=== PATIENT | female | born 1935 | race Caucasian/White ===

== ENCOUNTER 2017-08-12 08:33 | Inpatient (IN) | payer OTHER ==
[2017-07-02 11:41] VITALS: BMI 28.0
--- NOTE | 2017-07-02 12:40 | PAT Medication Instructions ---
Service Date Jul 02, 2017. Current Home Medication List Acetaminophen (Tylenol Arthritis Ext Rel), 2 TAB PO QD PRN for Pain Amlodipine (Norvasc), 2.5 MG PO QAM Apixaban (Eliquis), 5 MG PO BID Ascorbic Acid (Vitamin C), 1 TAB PO QAM Aspirin (Aspirin Ec), 81 MG PO QAM Bupropion (Wellbutrin), 100 MG PO BID Cholecalciferol (Vitamin D3), 1 CAP PO QAM Clonazepam (Klonopin), 0.5 MG PO QD Colestipol Hcl (Colestid), 1 GM PO BID Fish Oil (Lakewood-3), 2 CAP PO QAM Furosemide (Lasix), 40 MG PO QAM Hydrocortisone (Rectal) (Hydrocortisone), 1 APPLN PO DIRECTED Insulin Glargine (Lantus), 25 UNITS SC daily @1000 Irbesartan (Irbesartan), 1 TAB PO QAM Loperamide Hcl (Imodium), 2 MG PO QD PRN for Diarrhea Magnesium Oxide (Mag-Ox), 400 MG PO BID Mirtazapine Soltab (Remeron Soltab), 30 MG PO HS Multiple Vitamins W/ Minerals (Multi For Her), 1 CAP PO QAM Omeprazole (Prilosec), 20 MG PO BID Ondansetron Hcl (Zofran), 4 MG PO for Nausea Pancrelipase (Lipase-Protease- (Creon), 1 CAP PO TIDM Potassium Ext Rel (Klor-Con), 20 MEQ PO BID Simvastatin (Zocor), 1 TAB PO HS Sitagliptin (Januvia), 50 MG PO QAM Medication Instructions For Your Scheduled Surgery -Contact your family doctor for instructions for: Apixaban (Eliquis), 5 MG PO BID Aspirin (Aspirin Ec), 81 MG PO QAM Instructions were given by surgeon, need to confirm if OK with prescriber - Hold the following medications 2 weeks prior to surgery: Fish Oil (Lakewood-3), 2 CAP PO QAM - Hold the following medications 24 hours prior to surgery: Colestipol Hcl (Colestid), 1 GM PO BID Hydrocortisone (Rectal) (Hydrocortisone), 1 APPLN PO DIRECTED - Hold the following medications the morning of surgery: Ascorbic Acid (Vitamin C), 1 TAB PO QAM Cholecalciferol (Vitamin D3), 1 CAP PO QAM Furosemide (Lasix), 40 MG PO QAM Irbesartan (Irbesartan), 1 TAB PO QAM Loperamide Hcl (Imodium), 2 MG PO QD PRN for Diarrhea Magnesium Oxide (Mag-Ox), 400 MG PO BID Multiple Vitamins W/ Minerals (Multi For Her), 1 CAP PO QAM Pancrelipase (Lipase-Protease- (Creon), 1 CAP PO TIDM Potassium Ext Rel (Klor-Con), 20 MEQ PO BID Sitagliptin (Januvia), 50 MG PO QAM - Take the following medications the morning of surgery with a sip of water: Acetaminophen (Tylenol Arthritis Ext Rel), 2 TAB PO QD PRN for Pain (if needed, can be taken up to four hours before surgery) Amlodipine (Norvasc), 2.5 MG PO QAM Bupropion (Wellbutrin), 100 MG PO BID Clonazepam (Klonopin), 0.5 MG PO QD (if needed) Omeprazole (Prilosec), 20 MG PO BID Ondansetron Hcl (Zofran), 4 MG PO for Nausea (if needed) Oxycodone (if needed, can be taken up to four hours before surgery) Percocet (if needed, can be taken up to four hours before surgery) - Take the following medications as scheduled the night before surgery: Acetaminophen (Tylenol Arthritis Ext Rel), 2 TAB PO QD PRN for Pain (if needed) Bupropion (Wellbutrin), 100 MG PO BID Clonazepam (Klonopin), 0.5 MG PO QD Loperamide Hcl (Imodium), 2 MG PO QD PRN for Diarrhea (if needed) Mirtazapine Soltab (Remeron Soltab), 30 MG PO HS Omeprazole (Prilosec), 20 MG PO BID Ondansetron Hcl (Zofran), 4 MG PO for Nausea (if needed) Pancrelipase (Lipase-Protease- (Creon), 1 CAP PO TIDM Potassium Ext Rel (Klor-Con), 20 MEQ PO BID Simvastatin (Zocor), 1 TAB PO HS - For Insulin Dependent Diabetic patients: Test blood sugar A.M. of surgery. - If BLOOD SUGAR IS GREATER THAN 150, take half of your regular dose of: Insulin Glargine (Lantus) -- TAKE 12 UNITS - If BLOOD SUGAR IS LESS THAN 150, do not take any: Insulin Glargine ( Lantus) If you have any questions please call us at [phone] or [phone] or [phone]
[2017-07-02 13:51] LABS: BASO % 0.6 %; BASO ABS # 0.04 K/uL (0-0.2); EOS % 10.8 %; EOS ABS # 0.71 K/uL (0-0.5); HEMATOCRIT 38.1 % (37-47); HEMOGLOBIN 11.8 g/dL (12.0-16.0); IG# 0.02 K/uL (0.00-0.02); LYMPH % 24.9 %; LYMPH ABS # 1.63 K/uL (1.2-3.4); MEAN CELL VOLUME 89.9 fL (80-100); MEAN CORPUSCULAR HEMOGLOBIN 27.8 pg (25-34); MEAN PLATELET VOLUME 10.1 fL (7.4-10.4); MONO % 6.3 %; MONO ABS # 0.41 K/uL (0.11-0.59); NEUT % 57.1 %; NEUT ABS # 3.74 K/uL (1.4-6.5); PLATELET COUNT 331 K/uL (130-400); RED CELL DISTRIBUTION WIDTH CV 16.4 % (11.5-14.5); RED CELL DISTRIBUTION WIDTH SD 54.3 fL (36.4-46.3); WHITE BLOOD COUNT 6.55 K/uL (4.8-10.8)
[2017-07-02 14:01] LABS: PTT PATIENT 28.2 SECONDS (21.0-31.0)
[2017-07-02 15:48] LABS: CREATININE 1.53 mg/dl (0.60-1.20); POTASSIUM 4.8 mmol/L (3.5-5.1)
[2017-08-10 11:13] VITALS: BMI 28.0
[~2017-08-12] VITALS: Ht 157.5 cm; Wt 69.5 kg
[2017-08-12] VITALS (9 sets, daily range): BP systolic 101–181; BP diastolic 55–80; PULSE 50–97; TEMP 36.6–37.8; O2SAT 95–100; Ht 157.5 cm; Wt 69.5 kg
[~2017-08-12 08:33] MED LIST: ACET1TAB84 PO; AMLO2.5T PO; APIX1TAB3 PO; ASCO1CAP3 PO; ASPI81TA28 PO; BUPR-83 PO; CHOL2000 PO; CLON0.5T3 PO; COLE1TAB PO; FRS/40 PO; HYDR-4956 PO; IMD/2 PO; INSDGI SC; IRBE1TAB46 PO; LACTATED RINGER'S 1000ML 1,000 ML IV SCH; MAGN400T6 PO; MIRT30TA2 PO; MULT1CAP6 PO; OMEG10007 PO; ONDA4TAB46 PO; PANC6000 PO; POTA-639 PO; PRLSR20 PO; SIMV20TA2 PO; SITA50TA3 PO
[2017-08-12] MEDS ORDERED: MIDAZOLAM HCL 1 MG/ML 2ML VIAL ONE (09:38)
[2017-08-12] MEDS ORDERED: FENTANYL CITRATE INJ 50 MCG/1 ML 2 ML VIAL ONE ×3 (09:38→13:50)
[2017-08-12] MEDS ORDERED: OXYC-57 PO (09:48)
[2017-08-12] MEDS ORDERED: OXYC40TA34 PO (09:48)
--- NOTE | 2017-08-12 10:45 | History and Physical ---
History & Physical Date Aug 12, 2017. Chief Complaint "I have cancer". 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 She has been worked up and seen by [facility]. She has been deemed a resectable candidate. I saw the patient in the office on 06-30-17 and scheduled her for a lobectomy, but she developed an URI and was cancelled and rescheduled for today. I spoke to her family in detail today and we will proceed. Additional History Hepatic Disease: No Endocrine Disorder: No Kidney Disease: No Hypertension: No Heart Disease: No Bleeding Tendencies: No Infectious Diseases: No Allergies Coded Allergies: Ciprofloxacin (Verified Allergy, Mild, DIARRHEA, 08/12/17) Metformin (Verified Adverse Reaction, Mild, DIARRHEA, 08/12/17) Sulfa Antibiotics (Verified Adverse Reaction, Mild, DIARRHEA, 08/12/17) Home Medications Scheduled Apixaban (Eliquis), 5 MG PO BID Ascorbic Acid (Vitamin C), 1 TAB PO QAM Aspirin (Aspirin Ec), 81 MG PO QAM Bupropion (Wellbutrin), 100 MG PO BID Cholecalciferol (Vitamin D3), 1 CAP PO QAM Clonazepam (Klonopin), 0.5 MG PO QD Colestipol Hcl (Colestid), 1 GM PO BID Fish Oil (Dufur-3), 2 CAP PO QAM Furosemide (Lasix), 40 MG PO QAM Hydrocortisone (Rectal) (Hydrocortisone), 1 APPLN PO DIRECTED Insulin Glargine (Lantus), 25 UNITS SC daily @1000 Irbesartan (Irbesartan), 1 TAB PO QAM Magnesium Oxide (Mag-Ox), 400 MG PO BID Mirtazapine Soltab (Remeron Soltab), 30 MG PO HS Multiple Vitamins W/ Minerals (Multi For Her), 1 CAP PO QAM Omeprazole (Prilosec), 20 MG PO BID Oxycodone Hcl (Oxycontin), 40 MG PO Q12 Pancrelipase (Lipase-Protease- (Creon), 1 CAP PO TIDM Potassium Ext Rel (Klor-Con), 20 MEQ PO BID Simvastatin (Zocor), 1 TAB PO HS Sitagliptin (Januvia), 50 MG PO QAM Scheduled PRN Acetaminophen (Tylenol Arthritis Ext Rel), 2 TAB PO QD PRN for Pain Loperamide Hcl (Imodium), 2 MG PO QD PRN for Diarrhea Ondansetron Hcl (Zofran), 4 MG PO for Nausea Oxycodone/Acetaminophen 5MG/325MG (Percocet 5MG/325MG), 1-2 TABLETS PO Q4H PRN for Pain Physical Examination Skin: warm/dry, no rash Eyes: + pertinent finding (Wears glasses.) ENT: normal ENT inspection, pharynx normal Head: normocephalic, atraumatic Neck: supple, trachea midline, + pertinent finding (kyphosis) Respiratory/Chest: + pertinent finding (Some rhonchi) Cardiovascular: regular rate, rhythm, no edema, no murmur Abdomen / GI: normal bowel sounds, non tender Back: + pertinent finding (Marked kyphoscoliosis.) Extremities: normal inspection, normal range of motion Neurologic/Psych: no motor/sensory deficits, alert, normal reflexes, oriented x 3 Diagnosis Adenocarcinoma right lower lobe of lung. Plan of Treatment Robot assisted thoracoscopic right lower lobectomy.
[2017-08-12] MEDS ORDERED: SODIUM CHLORIDE 0.9% PF 50 ML VIAL ONE ×2 (11:05→11:06)
[2017-08-12] MEDS ORDERED: BUPIVACAINE 0.5 % 5 MG/1 ML MPF 30ML VIAL ONE (11:06)
[2017-08-12] MEDS ORDERED: BUPIVACAINE LIPOSOME 1/3% 266 MG/20 ML VIAL INFIL ONE (11:06)
[2017-08-12] MEDS ORDERED: MEPERIDINE HCL 25 MG/ML CARP IV PRN (11:15)
[2017-08-12] MEDS ORDERED: FENTANYL CITRATE INJ 50 MCG/1 ML 2 ML VIAL IV PRN (11:15)
[2017-08-12] MEDS ORDERED: HYDROmorphone INJ 0.5 MG/0.5 ML SYR IV PRN (11:15)
[2017-08-12] MEDS ORDERED: EpHEDrine SULFATE INJ 50 MG/ML AMP IV PRN (11:15)
[2017-08-12] MEDS ORDERED: ONDANSETRON INJ 2 MG/ML 2 ML VIAL IV PRN ×2 (11:15→14:00)
[2017-08-12] MEDS ORDERED: LABETALOL HCL IV 5 MG/ML 20ML IV PRN (11:15)
[2017-08-12] MEDS ORDERED: ATROPINE SULFATE 0.1 MG/ML 5ML SYR IV PRN (11:15)
[2017-08-12] MEDS ORDERED: LIDOCAINE HCL 2% 2 ML VIAL (20MG/ML) ONE ×2 (13:33→13:47)
[2017-08-12] MEDS ORDERED: ONDANSETRON INJ 2 MG/ML 2 ML VIAL ONE (13:33)
[2017-08-12] MEDS ORDERED: GLYCOPYRROLATE INJ 0.2 MG/ML VIAL ONE (13:33)
[2017-08-12] MEDS ORDERED: DEXAMETHASONE SOD INJ 4 MG/ML VIAL ONE (13:33)
[2017-08-12] MEDS ORDERED: ROCURONIUM BROMIDE 10 MG/ML 5 ML VIAL IV ONE (13:33)
[2017-08-12] MEDS ORDERED: PROPOFOL IV EMULSION 10 MG/ML 20 ML VIAL IV ONE (13:33)
[2017-08-12] MEDS ORDERED: NEOSTIGMINE METHYLSULFATE 5 MG/5 ML SYR ONE (13:33)
[2017-08-12] MEDS ORDERED: TISSEEL FIBRIN SEALANT 10ML TOP ONE ×2 (13:34→13:35)
[2017-08-12] MEDS ORDERED: EpHEDrine SULFATE INJ 50 MG/ML AMP ONE (13:41)
[2017-08-12] MEDS ORDERED: PHENYLEPHRINE 100MCG/ML 5ML SYR ONE (13:41)
[2017-08-12] MEDS ORDERED: PHENYLEPHRINE HCL INJ 10 MG/ML VIAL ONE (13:41)
--- NOTE | 2017-08-12 13:48 | [facility] Post Operative Brief Note ---
Immediate Operative Summary Operative Date Aug 12, 2017. Pre-Operative Diagnosis Adenocarcinoma, Right Lung Post-Operative Diagnosis same as pre-op Procedure(s) Performed Right Video Assisted Thoracoscopy with Right Lower Lobectomy, Mediastinal Lymphadenectomy Surgeon Dr. Kamar Gracia Rail Switchman Surgeon(s) Jens Lama PA-C Estimated Blood Loss 25mL Findings Consistent with Post-Op Diagnosis Specimens Tissue Examination: A. R4 Lymph Node B. R2 Lymph Node x 2 C. R9 Lymph Node D. R12 Lymph Node x 2 Frozen Section: 1. Right Lower Lobe, check for margins Anesthesia Type General
[2017-08-12] MEDS ORDERED: LABETALOL HCL IV 5 MG/ML 20ML IV ONE (13:53)
[2017-08-12] MEDS ORDERED: HYDROCORTISONE HC 2.5% CRM 30GM TUBE EXT PRN (14:00)
[2017-08-12] MEDS ORDERED: OXYCODONE HCL IR 5 MG TAB (IMMEDIATE RELEASE) PO PRN (14:00)
[2017-08-12] MEDS ORDERED: METOCLOPRAMIDE HCL INJ 5 MG/ML 2 ML VIAL ONE (14:13)
--- NOTE | 2017-08-12 14:42 | DIAGNOSTIC IMAGING REPORT ---
CHEST ONE VIEW PORTABLE CLINICAL HISTORY: RLL postoperative evaluation COMPARISON STUDY: No previous studies for comparison. FINDINGS: Postoperative changes right hemithorax with placement of a right sided chest tube. No significant postprocedural pneumothorax. Left lung is grossly clear. Severe degenerative changes of the shoulders bilaterally. IMPRESSION: Postoperative changes right hemithorax with no significant postprocedural pneumothorax. The above report was generated using voice recognition software. It may contain grammatical, syntax or spelling errors. Electronically signed by: Sony Hanson M.D. 08/12/2017 2:41 PM Dictated Date/Time: 08/12/2017 2:40 PM
--- NOTE | 2017-08-12 15:14 | Anesthesiology Progress Note ---
Anesthesia Post Op Note Date & Time Aug 12, 2017 at 15:13 Vital Signs Pain Intensity: 0 Vital Signs Past 12 Hours Date Time Temp Pulse Resp B/P (MAP) Pulse Ox O2 Delivery O2 Flow Rate FiO2 08/12/17 15:05 49 15 100 08/12/17 15:05 49 15 08/12/17 15:01 156/73 08/12/17 15:00 49 19 99 08/12/17 15:00 36.1 59 17 156/73 100 Nasal Cannula 3 08/12/17 15:00 49 19 08/12/17 14:56 165/78 08/12/17 14:55 54 22 08/12/17 14:55 50 22 98 08/12/17 14:51 162/74 08/12/17 14:50 48 14 100 08/12/17 14:50 52 14 08/12/17 14:46 142/77 08/12/17 14:45 50 18 97 08/12/17 14:45 50 18 08/12/17 14:41 163/74 08/12/17 14:40 49 16 100 08/12/17 14:40 49 16 08/12/17 14:36 153/73 08/12/17 14:35 50 15 100 08/12/17 14:35 49 15 08/12/17 14:31 153/79 08/12/17 14:30 57 16 116/94 100 08/12/17 14:30 57 16 08/12/17 14:25 59 19 08/12/17 14:25 62 19 08/12/17 14:21 155/80 08/12/17 14:20 56 16 100 08/12/17 14:20 56 16 08/12/17 14:17 138/68 08/12/17 14:15 58 18 08/12/17 14:15 56 18 100 08/12/17 14:11 135/72 08/12/17 14:10 26 08/12/17 14:10 64 26 08/12/17 14:10 35.8 70 12 135/72 99 Oxymask 10 08/12/17 09:18 95 Room Air 08/12/17 09:12 36.9 92 20 153/80 Notes Mental Status: alert / awake / arousable, participated in evaluation Pt Amnestic to Procedure: Yes Nausea / Vomiting: adequately controlled Pain: adequately controlled Airway Patency, RR, SpO2: stable & adequate BP & HR: stable & adequate Hydration State: stable & adequate Anesthetic Complications: no major complications apparent
[2017-08-12] MEDS ORDERED: DEXTROSE 50% 50 ML SYR IV PRN (15:45)
[2017-08-12] MEDS ORDERED: GLUCOSE 40% GEL 15 GM TUBE PO PRN (15:45)
[2017-08-12] MEDS ORDERED: GLUCOSE 10 TABS/TUBE PO PRN (15:45)
[2017-08-12] MEDS ORDERED: GLUCAGON FOR INJ 1 MG VIAL SQ PRN (15:45)
--- NOTE | 2017-08-12 16:01 | OPERATIVE REPORT ---
DATE OF OPERATION: 08/12/2017 PREOPERATIVE DIAGNOSIS: Adenocarcinoma, right lower lobe. POSTOPERATIVE DIAGNOSIS: Adenocarcinoma, right lower lobe. PROCEDURE: Robot-assisted thoracoscopic right lower lobectomy and mediastinal lymphadenectomy. SURGEON: Kamar Gracia MD FEED MIXER HELPER: LC Dietrich (MrAnca Lama was present for the entire case and was instrumental and he was at the patient's bedside while I was at the console. He closed the skin incisions at the conclusion of the case also). ANESTHESIA: General anesthesia with endotracheal intubation. INDICATION FOR PROCEDURE AND FINDINGS: Katerin Abbott is an 81-year-old who has never smoked cigarettes, is found to have an adenocarcinoma of the right lower lobe. I saw her in the office. We had multiple discussions about this, we elected to proceed with a lower lobectomy. She is 81 and has multiple issues, but in general, she and her family desired that we offer her a surgical resection if she was a candidate. On 08/12/2017, the patient was brought to the operating room and underwent an uncomplicated robot-assisted thoracoscopic right lower lobectomy and mediastinal lymphadenectomy. Her margins were negative. She tolerated this quite well and was extubated in the room with negligible blood loss. PROCEDURE IN DETAIL: The patient was brought to the operating room and laid in supine position. General anesthesia induced and endotracheal intubation was performed. This was done with a double lumen tube. The patient was then turned to left lateral decubitus position, the right chest was prepped and draped in usual sterile fashion. After appropriate antibiotics had been given and timeout had been taken, a 5 mm port was placed in the eighth interspace just above the costal margin and carbon dioxide infused. A 5 mm scope was placed and it could to be seen there were no adhesions. She had fairly complete fissures. Three other robotic ports were placed including a 12 mm camera port, 5 mm grasper, and two 8 mm ports. A 15 mm phlebotomy lab assistant's port was placed anteriorly just above the diaphragm. The robot was then docked. We used Exparel 266 mg mixed with 30 mL of 0.5% bupivacaine and 150 mL of normal saline. These were injected into all incisions and also used to do an intercostal nerve block from the 2nd to the 11th rib. After the robot had been docked, first the lung was retracted anteriorly and the posterior pleura was removed. I dissected out the level 7 area, identified the esophagus as well as the left main stem bronchus, I really did not see a lymph node here. There was a level 10 node. I saw some level 11 and level 12. I dissected out level 4 and 5 as well as level 9. I really did not see a level 8. After taking down the inferior pulmonary ligament, we came upon the vein which was easily cleaned off. Attention was then turned towards the fissure. There were lymph nodes which were stuck to the artery, but we have managed to get these off without difficulty. I completed the fissure anteriorly with a cautery and after we identified the bronchus as well as the artery and identified the middle lobe artery and vein for both of these. Attention was then turned towards the posterior fissure. After freeing up the arteries and dissecting he parenchyma free, I was able to put a stapler in place and complete the fissure posteriorly. After this, we then isolated the pulmonary artery to the lower lobe and fired an Endo-ZACHARY stapler just below the takeoff of the middle lobe branches. In the same fashion, a stapler was fired across the bronchus just below the takeoff of the middle lobe bronchus. Finally, we freed up everything else. We fired a stapler across the inferior pulmonary vein. The specimen was then placed in an Endobag and the right lower lobe was delivered off the field. We then checked and really saw no evidence of an air leak with inflation of the lung. It should be noted that the middle lobe inflated nicely and had firm attachment to the upper lobe. Tisseel was then sprayed along the bronchus as there was a bit of bleeding as well as the artery and the vein. A 24-Occitan chest tube was then placed in the anterior thoracoscopy port after we had undocked the robot and removed all of the ports. This was held in place with heavy silk suture. The larger phlebotomy lab assistant's port had to be enlarged a bit to get the specimen out. The muscle layers were closed with 0 Vicryl in a running continuous fashion and the 12 mm camera port was also reapproximated using 0 Vicryl. 4-0 Monocryl was used in running subcuticular fashion to approximate the wound edges. She really did not have much of an air leak. She had negligible blood loss and was extubated in the room and had good pain control. I attest to the content of the Intraoperative Record and any orders documented therein. Any exceptions are noted below. NICOLASA
[2017-08-12] MEDS: SODIUM CHLORIDE 0.9% 1000ML 1,000 ML IV SCH (16:33)
[2017-08-12] MEDS: ACETAMINOPHEN IV 1,000 MG in EMPTY BAG 0 ML IV SCH (16:37)
[2017-08-12] MEDS: MoRPHine SULFATE 2 MG/ML CARP IV PRN ×3 (16:47→22:12)
[2017-08-12] MEDS: PANCREAZE (LIPASE 10,500U) CAP PO SCH (17:37)
[2017-08-12] MEDS: INSULIN ASPART 100 UNITS/ML 3 ML PEN SC SCH ×2 (18:06→21:25)
[2017-08-12] MEDS: DOCUSATE SODIUM 100 MG CAP PO SCH (21:00)
[2017-08-12] MEDS: SIMVASTATIN 20 MG TAB PO SCH (21:06)
[2017-08-12] MEDS: MAGNESIUM OXIDE 400 MG TAB PO SCH (21:07)
[2017-08-12] MEDS: PANTOprazole SOD 40 MG TAB PO SCH (21:07)
[2017-08-12] MEDS: MIRTAZAPINE SOLTAB 15 MG PO SCH (21:09)
[2017-08-12] MEDS: INSULIN GLARGINE SOLOSTAR 100 UNITS/ML 3 ML PEN SC SCH (21:25)
[2017-08-12] MEDS: COLESTIPOL HCL 1 GM TAB PO SCH (22:05)
[2017-08-12] MEDS: METOCLOPRAMIDE HCL INJ 5 MG/ML 2 ML VIAL IV. SCH (22:07)
[2017-08-13] VITALS (11 sets, daily range): BP systolic 108–192; BP diastolic 64–96; PULSE 69–103; TEMP 36.5–37; O2SAT 91–99
[2017-08-13] MEDS: ACETAMINOPHEN IV 1,000 MG in EMPTY BAG 0 ML IV SCH (00:22)
[2017-08-13] MEDS: SODIUM CHLORIDE 0.9% 1000ML 1,000 ML IV SCH (03:25)
[2017-08-13] MEDS: MoRPHine SULFATE 2 MG/ML CARP IV PRN ×6 (04:42→23:58)
[2017-08-13] MEDS: METOCLOPRAMIDE HCL INJ 5 MG/ML 2 ML VIAL IV. SCH (05:01)
[2017-08-13] MEDS: IRBESARTAN 75 MG TAB PO SCH (07:47)
[2017-08-13] MEDS: PANCREAZE (LIPASE 10,500U) CAP PO SCH ×3 (07:48→18:31)
[2017-08-13] MEDS: DOCUSATE SODIUM 100 MG CAP PO SCH ×2 (07:49→20:56)
[2017-08-13] MEDS: ASPIRIN 81 MG ECTAB PO SCH (07:49)
[2017-08-13] MEDS: MAGNESIUM OXIDE 400 MG TAB PO SCH ×2 (07:49→20:56)
[2017-08-13] MEDS: SITAGLIPTIN 25 MG TAB PO SCH (07:50)
[2017-08-13] MEDS: CEROVITE ADV FORMULA TAB PO SCH (07:50)
[2017-08-13] MEDS: CHOLECALCIFEROL 1000 INTER.UNIT TAB PO SCH (07:50)
[2017-08-13 07:54] LABS: BASO % 0.1 %; BASO ABS # 0.01 K/uL (0-0.2); EOS % 0.4 %; EOS ABS # 0.04 K/uL (0-0.5); HEMATOCRIT 32.2 % (37-47); IG# 0.02 K/uL (0.00-0.02); LYMPH ABS # 1.15 K/uL (1.2-3.4); MEAN CELL VOLUME 90.4 fL (80-100); MEAN CORPUSCULAR HEMOGLOBIN 28.1 pg (25-34); MEAN CORPUSCULAR HGB CONC 31.1 g/dl (32-36); MEAN PLATELET VOLUME 9.4 fL (7.4-10.4); MONO % 8.7 %; MONO ABS # 0.83 K/uL (0.11-0.59); NEUT % 78.6 %; PLATELET COUNT 279 K/uL (130-400); RED CELL DISTRIBUTION WIDTH SD 49.8 fL (36.4-46.3); WHITE BLOOD COUNT 9.55 K/uL (4.8-10.8)
[2017-08-13] MEDS: INSULIN ASPART 100 UNITS/ML 3 ML PEN SC SCH ×4 (08:00→21:03)
[2017-08-13] MEDS: CLONAZEPAM 0.5 MG TAB PO SCH (08:02)
[2017-08-13 08:28] LABS: CALCIUM 8.3 mg/dl (8.5-10.1); CREATININE 1.47 mg/dl (0.60-1.20); POTASSIUM 4.5 mmol/L (3.5-5.1)
--- NOTE | 2017-08-13 08:53 | DIAGNOSTIC IMAGING REPORT ---
CHEST ONE VIEW PORTABLE CLINICAL HISTORY: History of right-sided lobectomy COMPARISON STUDY: 08/12/2017 FINDINGS: Postsurgical changes are present on the right. There is no change the position right-sided chest tube. There is no pneumothorax. There is no focal pulmonary consolidation. Surgical clips are visualized the base the right neck. There are advanced arthritic changes present within the shoulders.[ IMPRESSION: Postsurgical changes on the right. No evidence of pneumothorax. Electronically signed by: Simone Manning M.D. 08/13/2017 7:25 AM Dictated Date/Time: 08/13/2017 7:11 AM
[2017-08-13] MEDS ORDERED: ENOXAPARIN 30 MG/0.3 ML SYR SQ SCH (09:00)
[2017-08-13] MEDS ORDERED: ACETAMINOPHEN 325 MG TAB PO SCH (09:00)
[2017-08-13] MEDS ORDERED: NURSING VERBAL MED ORDER ONE (09:30)
[2017-08-13] MEDS ORDERED: OXYCODONE HCL 40 MG TABCR (OXYCONTIN) PO SCH (10:00)
[2017-08-13] MEDS: PANTOprazole SOD 40 MG TAB PO SCH ×2 (10:17→20:56)
[2017-08-13] MEDS: OXYCODONE HCL 20 MG TABCR (OXYCONTIN) PO SCH ×2 (10:17→20:54)
[2017-08-13] MEDS: COLESTIPOL HCL 1 GM TAB PO SCH ×2 (10:17→20:55)
[2017-08-13] MEDS: FUROSEMIDE 40 MG TAB PO SCH (10:17)
[2017-08-13] MEDS: APIXABAN 2.5 MG TAB PO SCH ×2 (11:12→20:55)
[2017-08-13] MEDS: OXYCODONE/ACETAMINOPHEN 5-325 TAB PO PRN ×2 (12:31→17:25)
--- NOTE | 2017-08-13 13:42 | SURGERY PROGRESS NOTE ---
DATE: 08/13/2017 Katerin Abbott is an 81-year-old female that had a robot-assisted thoracoscopic right lower lobectomy and mediastinal lymphadenectomy for an adenocarcinoma yesterday. She has done quite well. She is complaining of pain; however, the patient is on OxyContin at home for her pain. She is complaining of some chest tube site pain, but really has been breathing well. She is on room air. She ambulated in the hallway with her walker. She has been up in the chair for all her meals. Quite frankly, I am happy with her. We stopped her IV fluid, stopped suction to her chest tube and have her ambulate. I am going to remove her chest tube in the morning and probably let her go home. NICOLASA
[2017-08-13] MEDS: INSULIN GLARGINE SOLOSTAR 100 UNITS/ML 3 ML PEN SC SCH (21:04)
[2017-08-13] MEDS: SIMVASTATIN 20 MG TAB PO SCH (21:21)
[2017-08-13] MEDS: MIRTAZAPINE SOLTAB 15 MG PO SCH (21:21)
[2017-08-14] VITALS (9 sets, daily range): BP systolic 101–160; BP diastolic 54–91; PULSE 65–107; TEMP 36.3–37.5; O2SAT 91–100
[2017-08-14] MEDS: OXYCODONE/ACETAMINOPHEN 5-325 TAB PO PRN ×2 (01:57→18:24)
[2017-08-14] MEDS: MoRPHine SULFATE 2 MG/ML CARP IV PRN ×3 (04:50→15:39)
--- NOTE | 2017-08-14 08:14 | Discharge Instructions ---
Discharge Instructions Date of Service Aug 14, 2017. Admission Reason for Admission: Lung Cancer Discharge Discharge Diagnosis / Problem: Lung Cancer Discharge Goals Goal(s): Learn about illness Activity Recommendations Activity Limitations: as noted below Lifting Limitations: none 1. Do not drive until cleared to do so by Dr. Gracia. . Instructions / Follow-Up Instructions / Follow-Up 1. You may remove dressings in 3 days and shower thereafter. No tub baths. 2. Office appointment with Dr. Gracia in 1 week. Office will call you with date and time of appointment. Go to hospital 1 hour before appointment to have a chest x-ray taken. Current Hospital Diet Patient's current hospital diet: Diabetes Type 2 Diet Discharge Diet Recommended Diet: Diabetes Type 2 Diet Procedures Procedures Performed: Robot Assisted Right Video Assisted Thoracoscopy with Right Lower Lobectomy and Mediastinal Lymphadenectomy Pending Studies Studies pending at discharge: no Medical Emergencies . Who to Call and When: Medical Emergencies: If at any time you feel your situation is an emergency, please call 911 immediately. . Non-Emergent Contact Non-Emergency issues call your: Surgeon Call Non-Emergent contact if: you have a fever, your pain is not controlled, wound has increased drainage . "Provider Documentation" section prepared by Jens Lama. .
[2017-08-14] MEDS: IRBESARTAN 75 MG TAB PO SCH (08:33)
[2017-08-14] MEDS: CHOLECALCIFEROL 1000 INTER.UNIT TAB PO SCH (08:33)
[2017-08-14] MEDS: FUROSEMIDE 40 MG TAB PO SCH (08:34)
[2017-08-14] MEDS: SITAGLIPTIN 25 MG TAB PO SCH (08:34)
[2017-08-14] MEDS: APIXABAN 2.5 MG TAB PO SCH ×2 (08:34→21:39)
[2017-08-14] MEDS: PANCREAZE (LIPASE 10,500U) CAP PO SCH ×3 (08:34→18:21)
[2017-08-14] MEDS: ASPIRIN 81 MG ECTAB PO SCH (08:34)
[2017-08-14] MEDS: CEROVITE ADV FORMULA TAB PO SCH (08:35)
[2017-08-14] MEDS: OXYCODONE HCL 20 MG TABCR (OXYCONTIN) PO SCH ×2 (08:38→21:39)
[2017-08-14] MEDS: CLONAZEPAM 0.5 MG TAB PO SCH (08:38)
[2017-08-14] MEDS: INSULIN ASPART 100 UNITS/ML 3 ML PEN SC SCH ×4 (08:41→21:34)
--- NOTE | 2017-08-14 09:04 | DIAGNOSTIC IMAGING REPORT ---
CHEST ONE VIEW PORTABLE CLINICAL HISTORY: Tube removal. COMPARISON STUDY: Chest radiograph August 13, 2017. FINDINGS: The right sided chest tube has been removed. There is a medial right basilar pneumothorax, small in size. There is a trace right apical pneumothorax. Right hemithorax volume loss is noted. Surgical clips within the right lower neck/upper mediastinum are noted. Severe degenerative changes of both shoulders are noted. There is cardiomegaly without evidence for pulmonary edema. There are mild bibasilar opacities. IMPRESSION: 1. Interval removal of right-sided chest tube. Small right basilar pneumothorax with trace apical component. 2. Bibasilar opacities which favor atelectasis. Electronically signed by: Marck Hutchison M.D. 08/14/2017 9:02 AM Dictated Date/Time: 08/14/2017 8:59 AM
[2017-08-14] MEDS ORDERED: MIRT30TA2 PO (09:36)
[2017-08-14] MEDS ORDERED: CLON0.5T3 PO (09:36)
[2017-08-14] MEDS ORDERED: OXYC40TA34 PO (09:37)
[2017-08-14] MEDS ORDERED: OXYC-57 PO (09:37)
[2017-08-14] MEDS: PANTOprazole SOD 40 MG TAB PO SCH ×2 (09:39→21:39)
[2017-08-14] MEDS: MAGNESIUM OXIDE 400 MG TAB PO SCH ×2 (09:39→21:39)
[2017-08-14] MEDS: DOCUSATE SODIUM 100 MG CAP PO SCH ×2 (09:40→21:43)
--- NOTE | 2017-08-14 09:44 | Discharge Instructions ---
Discharge Instructions Date of Service Aug 14, 2017. Admission Reason for Admission: Lung Cancer Discharge Discharge Diagnosis / Problem: Lung Cancer Discharge Goals Goal(s): Improve disease control, Learn about illness Activity Recommendations Activity Level: Up Ad Kathrine, Assistance Required Therapies: Physical Therapy, Weight Bearing Status (full/as tolerated), Occupational Therapy Lifting Limitations: none Shower/Bathe: may shower/bathe in 3 days 1. Dressings may be removed on 08/17/17. Pt. may shower thereafter. No tub baths. . Additional Information Patient informed of condition: Yes Advance Directives: No DNR: No Level of Care: Acute Rehab Communicable Disease: No Prognosis: Improving Oxygen at (LPM): no Vilchis Catheter: No Instructions / Follow-Up Instructions / Follow-Up 1. Pt. needs to ambulate in hallway each shift. 2. Pt. needs to be OOB for all meals. 3. Please do not apply SCDs while pt. is in bedside chair (only use these while pt. is in bed.) 4. Office appointment with Dr. Gracia follow discharge. His office will contact the patient for an appointment date/time. The patient will need a chest x-ray prior to her appointment with Dr. Gracia, and his office will arrange this study. (Preferably this chest x-ray should be taken at [facility]) Current Hospital Diet Patient's current hospital diet: Diabetes Type 2 Diet Discharge Diet Recommended Diet: Diabetes Type 2 Diet Procedures Procedures Performed: Robot Assisted Right Video Assisted Thoracoscopy with Right Lower Lobectomy and Mediastinal Lymphadenectomy Pending Studies Studies pending at discharge: no Medical Emergencies . Who to Call and When: Medical Emergencies: If at any time you feel your situation is an emergency, please call 911 immediately. . Non-Emergent Contact Non-Emergency issues call your: Surgeon Call Non-Emergent contact if: you have a fever, your pain is not controlled, wound has increased drainage . . "Provider Documentation" section prepared by Jens Lama. . Core Measure Problem Core Measures: None
--- NOTE | 2017-08-14 10:16 | SURGERY PROGRESS NOTE ---
DATE: 08/14/2017 Ms. Abbott was seen today. Her chest tube is out. I think her x-ray looks good. Her x-ray is questionable whether there is small pneumothorax. She is on room air. She is ambulating in the hallway. She is complaining of pain; however, she complained of pain before she came in and is on significant doses of narcotics for her pain. At any rate, the patient lives in a [id number] suite with her daughter, but really her daughter is not there to help her. She is extremely concerned about going home by herself. She has had a major operation, but she is on room air. She was tolerating with assistance and with a walker. She is eating well. Hopefully, we can get her to an extended care facility later today or tomorrow.
[2017-08-14] MEDS: COLESTIPOL HCL 1 GM TAB PO SCH ×2 (12:05→22:44)
--- NOTE | 2017-08-14 16:11 | DISCHARGE SUMMARY ---
DISCHARGE DIAGNOSIS: Adenocarcinoma, right lower lobe. HOSPITAL COURSE: Katerin Abbott is an 81-year-old female with multiple medical problems including severe osteoarthritis who was found to have a mass in her right lower lobe. She was worked up by Dr. Jonel Mccullough from [facility]. Despite her age in fact she used a walker, she had never smoked cigarettes and had good lung function. After much discussion, we elected to proceed with a resection. On 08/12/2017, the patient underwent an uncomplicated robot-assisted thoracoscopic right lower lobectomy with mediastinal lymphadenectomy. Bronchial margins were clean. Ms. Abbott did quite well. I watched her on the floor. She complained of severe pain, but the patient has marked pain from her back and is on high doses of OxyContin and Percocet at home. We weaned her from her oxygen on the first postoperative day. We had her up walking in the hallway with her walker on the day of surgery. She was walked on every shift. She was eating well and on room air. We got her chest tube out on the morning of postoperative day 2. She did very well. She had taken all of her meals in a chair. Given her advanced age and other comorbid conditions, we elected to put her in a rehab facility for a short time until she improved enough to go home. It should be noted that she lives with her daughter in a [id number] suite. Ms. Abbott has multiple issues including anxiety and depression but her depression is very well controlled with medications and she exhibited no signs of that during her stay at [facility]. The patient was discharged to the [facility] on 08/14/2017. All of her incisions were clean and her chest x-ray looked good. We will see her back in the office in about a week to go over her final pathology reports.
[2017-08-14] MEDS: SIMVASTATIN 20 MG TAB PO SCH (21:39)
[2017-08-14] MEDS: INSULIN GLARGINE SOLOSTAR 100 UNITS/ML 3 ML PEN SC SCH (21:49)
[2017-08-14] MEDS: MIRTAZAPINE SOLTAB 15 MG PO SCH (21:50)
[2017-08-15 05:30] VITALS: O2SAT 92
[2017-08-15 07:18] VITALS: BP 117/75; PULSE 79; TEMP 36.5; O2SAT 95
[2017-08-15] MEDS: DOCUSATE SODIUM 100 MG CAP PO SCH (09:00)
[2017-08-15] MEDS: INSULIN ASPART 100 UNITS/ML 3 ML PEN SC SCH ×2 (09:54→12:00)
[2017-08-15] MEDS: CHOLECALCIFEROL 1000 INTER.UNIT TAB PO SCH (09:55)
[2017-08-15] MEDS: CEROVITE ADV FORMULA TAB PO SCH (09:56)
[2017-08-15] MEDS: OXYCODONE HCL 20 MG TABCR (OXYCONTIN) PO SCH (09:56)
[2017-08-15] MEDS: PANTOprazole SOD 40 MG TAB PO SCH (09:56)
[2017-08-15] MEDS: FUROSEMIDE 40 MG TAB PO SCH (09:57)
[2017-08-15] MEDS: MAGNESIUM OXIDE 400 MG TAB PO SCH (09:57)
[2017-08-15] MEDS: ASPIRIN 81 MG ECTAB PO SCH (09:58)
[2017-08-15] MEDS: SITAGLIPTIN 25 MG TAB PO SCH (09:58)
[2017-08-15] MEDS: IRBESARTAN 75 MG TAB PO SCH (09:58)
[2017-08-15] MEDS: APIXABAN 2.5 MG TAB PO SCH (09:58)
[2017-08-15] MEDS: COLESTIPOL HCL 1 GM TAB PO SCH (09:59)
[2017-08-15] MEDS: PANCREAZE (LIPASE 10,500U) CAP PO SCH ×2 (09:59→13:02)
[2017-08-15] MEDS: CLONAZEPAM 0.5 MG TAB PO SCH (10:00)
[2017-08-15 11:25] VITALS: BP 117/75; PULSE 79; TEMP 36.5; O2SAT 95
--- NOTE | 2017-08-17 08:00 | DISCHARGE SUMMARY ---
Ms. Abbott is to be discharged last night to the extended care facility in [place]; however, her family and the patient were reticent to have this done only 2 days after major lung resection. She was in significant pain and so we watched her one more day. Today, she is much better. She slept her entire night. She has been ambulating in the hallway. She really looks much better than she did yesterday. I reviewed her pathology. This is an interesting tumor. 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 The margins are negative and her lymph nodes are negative; however, it was large at 4 cm. Having said that, we will leave that up to her oncologist in [place] about whether or not she is to be treated. My feeling is she is 81 with comorbid conditions and her first line of therapy is going to be [place] and so I think that they would probably hold off keeping giving her chemotherapy in light of her negative margins.
== END 2017-08-15 13:00 | DRG 165 ==
LOC: C.ACU 08:33 → C.MSN 10:36 → ENRESERV 15:19
PROVIDERS: ADMIT Surgery; ATTEND Surgery
PROC: 8E0W4CZ Robotic Assisted Procedure of Trunk Region, Percutaneous Endoscopic Approach (ICD-10-PCS; principal; 2017-08-12 11:00)
PROC: 0BTF4ZZ Resection of Right Lower Lung Lobe, Percutaneous Endoscopic Approach (ICD-10-PCS; principal; 2017-08-12 11:00)
PROC: 07B74ZX Excision of Thorax Lymphatic, Percutaneous Endoscopic Approach, Diagnostic (ICD-10-PCS; principal; 2017-08-12 11:00)
DX: C34.31 Malignant neoplasm of lower lobe, right bronchus or lung (principal); I25.10 Atherosclerotic heart disease of native coronary artery without angina pectoris; I12.9 Hypertensive chronic kidney disease with stage 1 through stage 4 chronic kidney disease, or unspecified chronic kidney disease; E11.22 Type 2 diabetes mellitus with diabetic chronic kidney disease; N18.3 Chronic kidney disease, stage 3 (moderate); E78.5 Hyperlipidemia, unspecified; E89.2 Postprocedural hypoparathyroidism; M19.90 Unspecified osteoarthritis, unspecified site; F32.9 Major depressive disorder, single episode, unspecified; F41.9 Anxiety disorder, unspecified; Z86.711 Personal history of pulmonary embolism; Z79.01 Long term (current) use of anticoagulants; Z79.4 Long term (current) use of insulin; Z79.82 Long term (current) use of aspirin; Z79.891 Long term (current) use of opiate analgesic; Z79.899 Other long term (current) drug therapy; Z88.1 Allergy status to other antibiotic agents; Z88.2 Allergy status to sulfonamides; Z88.8 Allergy status to other drugs, medicaments and biological substances; Z98.890 Other specified postprocedural states